=== PATIENT | female | born 1945 | race Caucasian/White ===

== ENCOUNTER 2016-09-09 12:58 | Emergency (ER) | payer MEDICARE, OTHER ==
--- NOTE | 2016-09-09 14:02 | RADIOLOGY REPORT ---
Four views of the left wrist demonstrate transverse fracture of the distal radial metaphysis. There is slight dorsal impaction. No interarticular involvement is identified. The carpus appears intact. The ulna is intact. Peritrapezial degenerative joint disease is noted. IMPRESSION: Slight impacted transverse fracture of the left distal radius. MTDD
[2016-09-09] MEDS ORDERED: HYDROcodone/APAP 5/325 MG 1 TAB TABLET PO ONE (14:07)
--- NOTE | 2016-09-09 14:28 | ER PHYSICIAN DOCUMENTATION ---
Physician Documentation [facility] Name:Kate Cyr Age:71 yrs Sex:Female :1945 Arrival Date:09/09/2016 Time:12:58 Bed6 Private MD:Twyla Acosta EDGustavoDouglas Disposition: 09/09/16 13:52 Discharged to Home/Self Care. Impression: Distal Radius Fracture. - Condition is Good. - Discharge Instructions: WRIST FRACTURE Colles No Reduction Required - COLLES FRACTURE, No Reduction Required. - Prescriptions for Hydrocodone- Acetaminophen 5-325 mg Oral Tablet - take 1 tablet by ORAL route every 6 hours As needed; 20 tablet. - Medical Reconciliation form form. - Follow up: Ronald Mlulins DO, Marcelo Fuentes MD; When: 4- 6 days; Reason: Continuance of care. - Problem is new. - Symptoms have improved. HPI: 09/09 15:37 This 71 yrs old Female presents to ER via Private Vehicle with complaints of jm Wrist Injury - L. 15:37 The patient or guardian reports injury, pain. The complaints affect the left wrist jm diffusely. Context: resulted from a fall, on an outstretched hand. Onset: The symptom(s)/episode began/occurred just prior to arrival. Associated signs and symptoms: Pertinent negatives: numbness distally. The patient has not experienced similar symptoms in the past. Historical: - Allergies: Bacitracin; Neomycin Sulfate; PENICILLINS; Neosporin ([id number]); Polymyxin B Sulfate; Bacitracin Zinc; - Home Meds: 1. Simvastatin Oral 2. Lisinopril Oral 3. HCTZ - PMHx: HYPERTENSION; - PSHx: TONSILLECTOMY; - Tetanus: < 10 years. - Ebola Screening: : Patient denies exposure to infectious person. Patient denies travel to an Ebola-affected area in the 21 days before illness onset. . - Social history: Smoking status: Patient states was never smoker of tobacco. Patient uses alcohol but reports only rare drinking. Patient/guardian denies using marijuana. ROS: 15:37 Constitutional: Negative for fever, malaise. jm 15:37 MS/extremity: Positive for injury or acute deformity, decreased range of motion, pain, swelling. 15:37 Skin: Positive for swelling. 15:37 Neuro: Negative for numbness, tingling. 15:37 All other systems are negative. Exam: 15:37 Hand exam: Exam is positive for decreased range of motion, tenderness, ROM: limited jm active range of motion due to pain, in the left wrist, limited passive range of motion due to pain, Pulses: are normal with no appreciated deficits, sensation intact. 15:37 Skin: Appearance: swelling, noted on the left wrist, no rash present. 15:37 Neuro: Memory: is normal, Sensation: is normal. 15:37 Psych: Behavior/mood is pleasant, cooperative, Affect is calm. Vital Signs: 13:15 BP 122 / 89; Pulse 94; Resp 18; Temp 97.4; Pulse Ox 92% ; Pain 2/10; st Procedures: 15:37 Splinting: Splint applied to left arm and left wrist using Orthoglass splint, applied jm by myself. Examined by me, post splint application: neurovascular intact, brisk capillary refill noted, Patient tolerated well. MDM: 13:43 Patient medically screened. ramakrishna 15:37 Differential diagnosis: dislocation, closed fracture, contusion. Data reviewed: vital jm signs, nurses notes, old medical records, radiologic studies, and as a result, I will discharge patient. Test interpretation: by ED physician or midlevel provider: plain radiologic studies. Counseling: I had a detailed discussion with the patient and/or guardian regarding: the historical points, exam findings, and any diagnostic results supporting the discharge/admit diagnosis, radiology results, the need for outpatient follow up, a orthopedic surgeon. Response to treatment: the patient's symptoms have markedly improved after treatment. ED course: PT w distal radius fx. Pt immobilized, slung and given vicodin for home. Pt will make appointment w ortho here. . 09/09 13:11 Order name: Ice Packs; Complete Time: 13:11 st 09/09 14:14 Order name: ORTHO: Shoulder Immobilizer; Complete Time: 14:26 ramakrishna Dispensed Medications: 13:59 Not Given (Patient Refused): HYDROcodone-acetaminophen 5 mg-325 mg [address] Signatures: Kandi Damico RN RN st Meyer, John, MD MD jm
--- NOTE | 2016-09-09 14:28 | ER NURSING DOCUMENTATION ---
Nurse's Notes [facility] Name:Kate Cyr Age:71 yrs Sex:Female :1945 Arrival Date:09/09/2016 Time:12:58 Bed6 Private MD:Twyla Acosta Diagnosis:Distal Radius Fracture Presentation: 09/09 13:10 Acuity: KATHRYN 4 st 13:12 Notified ED Physician of Gustavo Laureano notified. st 13:12 Presenting complaint: Patient states: pt slipped on the ice and fell onto her left st side. pt now has left wrist pain. Transition of care: patient was not received from another setting of care. Care prior to arrival: Medication(s) given: Ibuprofen. 13:12 Method Of Arrival: Private Vehicle st Triage Assessment: 13:14 General: Appears in no apparent distress, Behavior is cooperative. Pain: Complains of st pain in dorsal aspect of left wrist and up into proximal hand below the thumb. Cardiovascular: No deficits noted. Respiratory: No deficits noted. GI: No deficits noted. Musculoskeletal: Circulation, motion, and sensation intact Swelling present in dorsum of left hand Reports pain in left wrist since fall about one hour ago.. Historical: - Allergies: Bacitracin; Neomycin Sulfate; PENICILLINS; Neosporin ([id number]); Polymyxin B Sulfate; Bacitracin Zinc; - Home Meds: 1. Simvastatin Oral 2. Lisinopril Oral 3. HCTZ - PMHx: HYPERTENSION; - PSHx: TONSILLECTOMY; - Tetanus: < 10 years. - Ebola Screening: : Patient denies exposure to infectious person. Patient denies travel to an Ebola-affected area in the 21 days before illness onset. . - Social history: Smoking status: Patient states was never smoker of tobacco. Patient uses alcohol but reports only rare drinking. Patient/guardian denies using marijuana. Screenin:16 Infectious Disease Risk None. Abuse screen: Denies threats or abuse. Denies injuries st from another. pt feels safe at home. Nutritional screening: No deficits noted. Assessment: 14:27 General: CMS intact post splinting.. st Vital Signs: 13:15 BP 122 / 89; Pulse 94; Resp 18; Temp 97.4; Pulse Ox 92% ; Pain 2/10; st ED Course: 13:01 Patient arrived in ED. ama 13:01 Twyla Acosta MD is Private Physician. ama 13:10 Kandi Damico RN is Primary Nurse. st 13:[address] 13:17 Valuables Remains with patient Bed in low position. Ice pack to injury. st 13:43 Douglas Chen MD is Attending Physician. 13:43 Port Xray Completed. ms 13:52 Ronald Mullins DO, Marcelo Fuentes MD is Referral Physician. 13:[address] 14:27 Sling & swathe to left arm. st Administered Medications: 13:59 Not Given (Patient Refused): HYDROcodone-acetaminophen 5 mg-325 mg [address] Outcome: 13:52 Discharge ordered by . ramakrishna 14:27 Discharged to home ambulatory. st 14:27 Condition: improved 14:27 Discharge instructions given to patient, Instructed on discharge instructions, follow up and referral plans. medication usage, Prescriptions given X 1. 14:27 [address] the ED[address] st 09/10 09:08 Discharge F/U Call: Spoke with: patient. Overall Care on a scale of 1-[address] being the best care, you rate our care as: Other comments: pt is in a good mood. pt states that "every thing is an adventure but she is doing well". Pt had no questions or concerns. Signatures: Kandi Damico RN RN st Meyer, John, MD MD jm Strickland, Mary Stephen Lopes, Reg Reg ama
== END 2016-09-09 14:28 | disposition home or self-care (01) ==
LOC: ER 12:58
DX: S52.502A Unspecified fracture of the lower end of left radius, initial encounter for closed fracture (principal); W00.0XXA Fall on same level due to ice and snow, initial encounter; Y92.89 Other specified places as the place of occurrence of the external cause; Y93.01 Activity, walking, marching and hiking; I10 Essential (primary) hypertension; Z79.899 Other long term (current) drug therapy
CPT/HCPCS: 29125; 73110; 99283; 99284